=== PATIENT | female | born 1950 | race Caucasian/White ===

== ENCOUNTER 2018-04-27 16:16 | Emergency (ER) | payer MEDICARE ==
[~2018-04-27] VITALS: Ht 558.9 cm; Wt 76.0 kg
[2018-04-27] MEDS ORDERED: HYDROcodone/acetaminophen 5mg/325mg tablet PO ONE (17:10)
[2018-04-27] MEDS ORDERED: epiNEPHrine inj 0.3 MG in BUPIVAcaine 0.5% inj/PF 29.7 ML SQ ONE (17:20)
[2018-04-27] MEDS ORDERED: bupivacaine 0.25%/epinephrine 1:200,000 inj (contains preserv. MDV) IJ ONE (17:25)
[2018-04-27] MEDS ORDERED: HYDR-3965 PO (17:57)
[2018-04-27 18:17] VITALS: BP 138/78
== END 2018-04-27 18:21 | disposition home or self-care (01) ==
LOC: EDUNIT# 16:16 → ER 16:17
DX: S52.501A Unspecified fracture of the lower end of right radius, initial encounter for closed fracture (principal); S92.321A Displaced fracture of second metatarsal bone, right foot, initial encounter for closed fracture; S92.331A Displaced fracture of third metatarsal bone, right foot, initial encounter for closed fracture; S92.341A Displaced fracture of fourth metatarsal bone, right foot, initial encounter for closed fracture; Z79.899 Other long term (current) drug therapy; W18.39XA Other fall on same level, initial encounter; Y93.89 Activity, other specified; Y92.89 Other specified places as the place of occurrence of the external cause; Y99.8 Other external cause status
CPT/HCPCS: 25605; 73100; 73110; 73630; 99284; L4360